=== PATIENT | female | born 1955 | race Caucasian/White ===

== ENCOUNTER 2018-08-14 14:42 | Outpatient (REF) | payer BC, SELFPAY ==
[2018-08-14 18:32] LABS: HCT 42.7 % (36.0-46.0); HGB 13.7 g/dL (12.0-15.5); Mean Corp. HGB Concentration 32.1 g/dL (32.0-36.0); Mean Corpuscular Hemoglobin 28.8 pg (27.0-33.0); Mean Corpuscular Volume 89.7 fL (80-95); Mean Platelet Volume 9.8 fL (8.0-11.0); Platelet Count 296 x1000/uL (130-400); RBC 4.76 m/cumm (4.00-5.20); RBC Distribution Width 14.1 % (11.7-14.6); White Blood Cell Count 9.21 k/cumm (4.4-10.8)
[2018-08-14 18:44] LABS: Anion Gap 10.9 mmol/L (3-11); BUN 14 mg/dL (7-18); CO2 26.1 mmol/L (21.0-32.0); CREATININE 0.67 mg/dL (0.55-1.02); Calcium 9.6 mg/dL (8.5-10.1); Chloride 104 mmol/L (98-107); Glucose 82 mg/dL (70-100); LDL CHOLESTEROL 97 mg/dL (<100); Magnesium 2.1 mg/dL (1.8-2.4); Sodium 141 mmol/L (136-145)
[2018-08-14 19:06] LABS: C-Reactive Protein 0.18 mg/dL (0.0-0.3)
[2018-08-14 20:15] LABS: ESR 10 MM/HR (0-30)
== END 2018-08-14 15:02 ==
LOC: NCHCN 14:42
PROVIDERS: PCP Internal Medicine; Visit Provider Internal Medicine
DX: G47.62 Sleep related leg cramps (principal); G45.3 Amaurosis fugax; D49.7 Neoplasm of unspecified behavior of endocrine glands and other parts of nervous system; J01.10 Acute frontal sinusitis, unspecified
CPT/HCPCS: 80048; 83721; 85027; 85652; 83735; 86140

== ENCOUNTER 2020-04-28 08:49 | Outpatient (REF) | payer MEDICARE, BC, SELFPAY ==
[2020-04-28 16:05] LABS: Abs Immature Grans 0.02 10^3/uL (0.0-0.06); Absolute Basophil Count 0.07 10^3/uL (0.0-0.2); Absolute Eosinophil Count 0.14 10^3/uL (0.0-0.7); Absolute Lymphocyte Count 2.31 10^3/uL (1.2-3.4); Absolute Monocyte Count 0.52 10^3/uL (0.1-0.8); Absolute Neutrophil Count 3.53 10^3/uL (1.2-6.7); Basophils % 1.1; Eosinophils % 2.1; HCT 42.4 % (36.0-46.0); HGB 13.5 g/dL (11.2-15.7); Immature Grans % 0.3; Lymphocytes % 35.1; MCH 28.9 pg (27.0-33.0); MCHC 31.8 % (32.0-36.0); MCV 90.8 fL (80-95); MPV 9.2 fL (8.0-11.0); Monocytes % 7.9; Neutrophils % 53.5; Nucleated RBC 0 %; Platelet Count 288 10^3/uL (130-400); RBC 4.67 10^6/uL (3.93-5.22); RDW 13.6 % (11.7-14.6); RDW-SD 45.6 fL; WBC 6.59 10^3/uL (4.4-10.8)
[2020-04-28 16:30] LABS: ALT 20 U/L (14-59); AST 9 U/L (15-37); Albumin 3.4 g/dL (3.4-5.0); Alkaline Phosphatase 50 U/L (46-116); Anion Gap 8.5 mmol/L (3-11); BUN 17 mg/dL (7-18); Bilirubin, Total 0.3 mg/dL (0.2-1.0); CO2 28.5 mmol/L (21.0-32.0); CREATININE 0.8 mg/dL (0.55-1.02); Calcium 9.1 mg/dL (8.5-10.1); Calculated LDL 124 mg/dL (<100); Chloride 104 mmol/L (98-107); Cholesterol 197 mg/dL (<200); Glucose 89 mg/dL (74-106); HDL Cholesterol 60 mg/dL (40-60); Potassium 4.3 mmol/L (3.5-5.1); Sodium 141 mmol/L (136-145); TSH (W/Ref FT4) 2.28 uIU/mL (0.36-3.74); Total Protein 6.7 g/dL (6.4-8.2); Triglyceride 68 mg/dL (<150)
== END 2020-04-28 08:50 | disposition home or self-care (01) ==
LOC: NCHCN 08:49
PROVIDERS: PCP Internal Medicine; Visit Provider Physician Assistant
DX: G45.3 Amaurosis fugax (principal); G47.9 Sleep disorder, unspecified
CPT/HCPCS: 80053; 80061; 84443; 85025

== ENCOUNTER 2022-06-28 11:50 | Outpatient (REF) | payer MEDICARE, BC, SELFPAY ==
[2022-06-28 21:40] LABS: ALT 24 U/L (14-59); AST 17 U/L (15-37); Albumin 3.4 g/dL (3.4-5.0); Alkaline Phosphatase 53 U/L (46-116); Anion Gap 8.5 mmol/L (3-11); BUN 17 mg/dL (7-18); Bilirubin, Total 0.2 mg/dL (0.2-1.0); CO2 26.5 mmol/L (21.0-32.0); CREATININE 0.8 mg/dL (0.55-1.02); Calcium 9.1 mg/dL (8.5-10.1); Chloride 105 mmol/L (98-107); Estimated GFR 80.21 (mL/min/1.73m2); Glucose 92 mg/dL (74-106); LDL CHOLESTEROL 91 mg/dL (<100); Sodium 140 mmol/L (136-145)
== END 2022-06-28 11:51 | disposition home or self-care (01) ==
LOC: NCHCN 11:50
PROVIDERS: PCP Internal Medicine; Visit Provider Physician Assistant
DX: E78.5 Hyperlipidemia, unspecified (principal)
CPT/HCPCS: 80053; 83721

== ENCOUNTER 2023-07-03 14:52 | Outpatient (REF) | payer MEDICARE, BC, SELFPAY ==
[2023-07-03 18:53] LABS: ALT 22 U/L (14-59); AST 17 U/L (15-37); Albumin 3.4 g/dL (3.4-5.0); Alkaline Phosphatase 52 U/L (46-116); Anion Gap 6.8 mmol/L (3-11); BUN 19 mg/dL (7-18); Bilirubin, Total 0.3 mg/dL (0.2-1.0); CO2 27.2 mmol/L (21.0-32.0); CREATININE 0.9 mg/dL (0.55-1.02); Chloride 105 mmol/L (98-107); Glucose 102 mg/dL (74-106); Potassium 4.4 mmol/L (3.5-5.1); Sodium 139 mmol/L (136-145); Total Protein 7.1 g/dL (6.4-8.2)
== END 2023-07-03 14:53 | disposition home or self-care (01) ==
LOC: NCHCN 14:52
PROVIDERS: PCP Internal Medicine; Visit Provider Physician Assistant
DX: E78.5 Hyperlipidemia, unspecified (principal)
CPT/HCPCS: 80053

== ENCOUNTER 2024-07-10 15:15 | Outpatient (REF) | payer MEDICARE, BC, SELFPAY ==
[2024-07-10 19:49] LABS: ALT 18 U/L (14-59); AST 19 U/L (15-37); Albumin 3.2 g/dL (3.4-5.0); Alkaline Phosphatase 53 U/L (46-116); Anion Gap 5.4 mmol/L (3-11); BUN 21 mg/dL (7-18); Bilirubin, Total 0.3 mg/dL (0.2-1.0); CO2 28.6 mmol/L (21.0-32.0); CREATININE 0.8 mg/dL (0.55-1.02); Calcium 9.1 mg/dL (8.5-10.1); Chloride 104 mmol/L (98-107); Estimated GFR 79.22 (mL/min/1.73m2); Glucose 111 mg/dL (74-106); LDL CHOLESTEROL 82 mg/dL (<100); Potassium 4.3 mmol/L (3.5-5.1); Sodium 138 mmol/L (136-145); Total Protein 6.8 g/dL (6.4-8.2)
[2024-07-14 10:07] LABS: Hepatitis C Ab w Rflx HCV PCR Negative (Negative)
== END 2024-07-10 15:16 | disposition home or self-care (01) ==
LOC: NCHCN 15:15
PROVIDERS: PCP Internal Medicine; Visit Provider Physician Assistant
DX: E78.5 Hyperlipidemia, unspecified (principal); Z11.59 Encounter for screening for other viral diseases
CPT/HCPCS: 80053; 83721; 86803

== ENCOUNTER → 2024-09-03 09:42 | Outpatient (BNVA) | payer MEDICARE, BC, SELFPAY | PROVIDERS: PCP Physician Assistant; Referring Provider Physician Assistant; Visit Provider Podiatrist | DX: B35.1 Tinea unguium (principal); L60.3 Nail dystrophy; L60.2 Onychogryphosis; L60.1 Onycholysis; L60.8 Other nail disorders | CPT/HCPCS: 99203; 11755 ==

== ENCOUNTER → 2024-11-12 07:58 | Outpatient (BNVA) | payer MEDICARE, BC, SELFPAY | PROVIDERS: PCP Physician Assistant; Referring Provider Physician Assistant; Visit Provider Podiatrist | DX: L60.3 Nail dystrophy (principal); B35.1 Tinea unguium; L60.2 Onychogryphosis | CPT/HCPCS: 99213 ==